=== PATIENT | female | born 1985 | race Caucasian/White ===

== ENCOUNTER 2018-03-30 09:35 | Emergency (ER) | payer OTHER ==
[~2018-03-30] VITALS: Ht 172.7 cm; Wt 68.0 kg
[2018-03-30] MEDS ORDERED: FLONASE ALLERG9.9 ML NAS (09:58)
[2018-03-30] MEDS ORDERED: ROBITUSSIN DM 101 OZ PO (09:58)
[2018-03-30] MEDS ORDERED: PREDNISONE20 M1 PO (09:58)
[2018-03-30] MEDS ORDERED: AMOXICILLIN500 M3 PO (10:50)
[2018-03-30] MEDS ORDERED: TAMIFLU 75MG CA75 MG PO (10:50)
== END 2018-03-30 10:56 | disposition home or self-care (01) ==
LOC: ED 09:35
DX: J06.9 Acute upper respiratory infection, unspecified (principal); J02.9 Acute pharyngitis, unspecified

== ENCOUNTER 2021-03-19 21:23 | Emergency (ER) | payer OTHER ==
[~2021-03-19] VITALS: Ht 172.7 cm; Wt 65.8 kg
[~2021-03-19 21:23] MED LIST: AMOXICILLIN500 M3 PO; FLONASE ALLERG9.9 ML NAS; PREDNISONE20 M1 PO; ROBITUSSIN DM 101 OZ PO; TAMIFLU 75MG CA75 MG PO
[2021-03-19 22:03] LABS: BASO % 0.5 % (0.0-1.0); EOS % 0.5 % (1.0-4.0); HEMATOCRIT 42.1 % (37.0-47.0); LYMPH # 1.7 10*3/uL (1.3-4.4); LYMPH % 25.7 % (27.0-41.0); MEAN CELL VOLUME 95.7 fl (81.0-99.0); MEAN CORPUSCULAR HGB 30.7 pg (27.0-31.0); MEAN CORPUSCULAR HGB CONC 32.1 g/dl (33.0-37.0); MEAN PLATELET VOLUME 10.1 fl (9.6-12.3); MONO # 0.6 10*3/uL (0.1-1.0); MONO % 9.3 % (3.0-9.0); NEUT # 4.2 10*3/uL (2.3-7.9); NEUT % 63.8 % (47.0-73.0); PLATELET COUNT AUTOMATED 352 10*3/uL (130-400); RED CELL DISTRI WIDTH 13.5 % (0-14.5); WHITE BLOOD COUNT 6.5 10*3/uL (4.8-10.8)
[2021-03-19 22:18] LABS: ALBUMIN 3.5 gm/dl (3.1-4.5); ALKALINE PHOSPHATASE 56 U/L (45-117); BUN 16 mg/dl (7-24); CHLORIDE 108 mmol/L (98-107); POTASSIUM 3.9 mmol/L (3.5-5.1); SGOT/AST 14 IU/L (3-35); SGPT/ALT 18 U/L (12-78); SODIUM 140 mmol/L (136-145); TOTAL PROTEIN 7.1 gm/dL (6.4-8.2)
== END 2021-03-20 00:04 | disposition home or self-care (01) ==
LOC: ED 21:23
PROVIDERS: Internal Medicine
DX: B34.9 Viral infection, unspecified (principal); Z20.822 Contact with and (suspected) exposure to COVID-19

== ENCOUNTER 2023-04-04 15:08 | Emergency (ER) | payer OTHER ==
[~2023-04-04] VITALS: Ht 172.7 cm; Wt 77.1 kg
[2023-04-04] MEDS ORDERED: AVPAK AZITHROM250 M1 PO (15:30)
== END 2023-04-04 15:33 | disposition home or self-care (01) ==
LOC: ED 15:08
DX: J32.9 Chronic sinusitis, unspecified (principal)

== ENCOUNTER 2023-09-26 20:27 | Emergency (ER) | payer OTHER ==
[~2023-09-26 20:27] MED LIST changes: +AVPAK AZITHROM250 M1 PO
[2023-09-26] MEDS ORDERED: Ondansetron Hydrochloride 4 MG TAB SL ONE (22:10)
[2023-09-26] MEDS ORDERED: CEPHALEXIN500 M1 PO (22:47)
[2023-09-26] MEDS ORDERED: CEPHALEXIN 500 MG CAP PO ONE (22:50)
[2023-09-26] MEDS ORDERED: Tdap Vaccine 0.5 ML SYR (Adult Vaccine) IM ONE (22:50)
[2023-09-26] MEDS ORDERED: Acetaminophen/Hydrocodone 5 MG/325 MG TABLET PO ONE (22:50)
== END 2023-09-26 23:09 | disposition home or self-care (01) ==
LOC: ED 20:27
DX: S90.851A Superficial foreign body, right foot, initial encounter (principal); W45.8XXA Other foreign body or object entering through skin, initial encounter; Y93.89 Activity, other specified; Y92.89 Other specified places as the place of occurrence of the external cause; Y99.8 Other external cause status